=== PATIENT | female | born 1980 | race Two or more races ===

== ENCOUNTER 2017-11-23 22:41 | Emergency (ER) | payer OTHER ==
[~2017-11-23] VITALS: Ht 170.2 cm; Wt 65.8 kg
== END 2017-11-23 23:32 | disposition home or self-care (01) ==
LOC: ER 22:41
DX: S61.411A Laceration without foreign body of right hand, initial encounter (principal); W25.XXXA Contact with sharp glass, initial encounter; Y93.89 Activity, other specified; Y92.69 Other specified industrial and construction area as the place of occurrence of the external cause; Y99.8 Other external cause status